=== PATIENT | female | born 1985 | race Hispanic/Latino ===

== ENCOUNTER 2021-07-12 17:18 | Emergency (ER) | payer OTHER ==
[2021-07-12 17:45] LABS: #Eosinphils 0.1 10x3/uL (0.0-0.5); #Monocytes 0.7 10x3/uL (0.0-1.1); #Neutrophils 6.3 10x3/uL (1.5-8.4); %Basophils 0.2 % (0.0-2.0); %Eosinophils 0.6 % (0.0-6.0); %Lymphocytes 11.6 % (18.0-47.0); %Monocytes 8.3 % (0.0-10.0); %Neutrophils 78.3 % (40.0-75.0); Hemoglobin 11.2 g/dL (12.0-15.5); Mean Corpuscular HGB CONC 32.7 g/dL (32.0-36.0); Mean Corpuscular Hemoglobin 29.7 pg (27.0-33.0); Mean Corpuscular Volume 90.7 fl (81.6-98.3); Mean Platelet Volume 9.4 fl (7.4-10.4); Platelet Count 307 10x3/uL (150-450); RBC Distribution Width 13.3 % (11.5-14.5); Red Blood Cell (RBC) Count 3.77 10x6/uL (3.90-5.03); White Blood Cell (WBC) Count 8.1 10x3/uL (3.5-10.5)
[2021-07-12 18:11] LABS: ALT (SGPT) 27 U/L (8-55); AST (SGOT) 41 U/L (5-34); Albumin 3.4 g/dL (3.5-5.0); Alkaline Phosphatase 144 U/L (40-110); Anion Gap 14 mmol/L (10-20); BUN (Urea Nitrogen) 5 mg/dL (7.0-18.7); Bilirubin, Total 0.3 mg/dL (0.2-1.2); Calc. Creatinine Clearance 0 mL/min (70-130); Calcium 9.2 mg/dL (7.8-10.44); Carbon Dioxide 18 mmol/L (22-29); Chloride 106 mmol/L (98-107); Globulin 3.8 g/dL (2.4-3.5); Glucose 122 mg/dL (70-105); Potassium 3.8 mmol/L (3.5-5.1); Protein, Total 7.2 g/dL (6.0-8.3); Sodium 134 mmol/L (136-145)
[2021-07-12] MEDS ORDERED: Acetaminophen 500 MG TAB ONE (18:35)
[2021-07-12 19:10] LABS: Bilirubin Neg (Negative); Blood, Urine Negative (Negative); Clarity Clear (Clear); Glucose, Urine (Dipstick) Normal (Negative); Ketone, Urine Negative (Negative); Leukocyte Negative (Negative); Nitrite Negative (Negative); Protein, Urine (Dipstick) Negative (Neg-Trace); Urobilinogen Normal mg/dL (Less than 2)
[2021-07-12 19:39] LABS: SARS-CoV-2 NAA Rapid Test Not Detected (NotDetected)
== END 2021-07-12 21:29 | disposition home or self-care (01) ==
LOC: CSHERS 17:18
DX: J11.1 Influenza due to unidentified influenza virus with other respiratory manifestations (principal); Z20.822 Contact with and (suspected) exposure to COVID-19
CPT/HCPCS: 0240U; 80053; 81003; 83605; 84484; 85025; 85379; 87040; 93005

== ENCOUNTER 2024-02-16 18:06 | Inpatient (IN) | payer MEDICAID, OTHER ==
[2024-02-16 18:46] VITALS: BMI 29.7
[2024-02-16] MEDS ORDERED: Diphenoxylate HCl/Atropine Tablet PO PRN (20:17)
[2024-02-16] MEDS ORDERED: Tranexamic Acid 1,000 MG/10 ML VIAL IVP PRN (20:17)
[2024-02-16] MEDS ORDERED: Methylergonovine 0.2 MG/ML VIAL IM PRN (20:17)
[2024-02-16] MEDS ORDERED: Ondansetron PF 4 MG/2 ML Vial IVP PRN (20:17)
[2024-02-16] MEDS ORDERED: Lidocaine 1% (PF) 30 ML VIAL SC PRN (20:17)
[2024-02-16] MEDS ORDERED: Promethazine HCl 25 MG/ML VIAL IM PRN (20:17)
[2024-02-16] MEDS ORDERED: hydrALAZINE 20 MG/ML VIAL SLOW IVP PRN (20:17)
[2024-02-16] MEDS ORDERED: Carboprost 250 MCG/ML AMP IM PRN (20:17)
[2024-02-16] MEDS ORDERED: Acetaminophen 500 MG TAB PO PRN (20:17)
[2024-02-16] MEDS ORDERED: Misoprostol 200 MCG TAB PR PRN (20:17)
[2024-02-16 20:29] LABS: Hematocrit 36.3 % (34.9-44.5); Hemoglobin 12.8 g/dL (12.0-15.5); Mean Corpuscular HGB CONC 35.3 g/dL (32.0-36.0); Mean Corpuscular Hemoglobin 30.2 pg (27.0-33.0); Mean Corpuscular Volume 85.6 fL (81.6-98.3); Mean Platelet Volume 10.4 fL (7.4-10.4); Platelet Count 369 10x3/uL (150-450); RBC Distribution Width 13.1 % (11.5-14.5); Red Blood Cell (RBC) Count 4.24 10x6/uL (3.90-5.03); White Blood Cell (WBC) Count 7.7 10x3/uL (3.5-10.5)
[2024-02-16] MEDS ORDERED: Oxytocin 30 units/NS 500 ML 500 ML IV SCH ×3 (20:30)
[2024-02-16 21:09] LABS: Syphilis Antibody Nonreactive (Nonreactive); Syphilis Antibody Index 0.08 S/CO (<1.00 Non-Reactive)
[2024-02-16 21:11] LABS: HBsAg Index 0.17 S/CO (0-0.99); Hep B Surf Ag - L&D Non-Reactive S/CO (NonReactive)
[2024-02-16 22:14] LABS: HIV (1/2) Antibody/Antigen Non-Reactive (NonReactive); HIV 1/2 INDEX 0.15 S/CO (<1.00)
[2024-02-17] MEDS: Misoprostol 100 MCG TAB PO SCH (00:13)
[2024-02-17] MEDS: fentaNYL 50 mcg/mL 1 mL Vial SLOW IVP PRN (03:50)
[2024-02-17] MEDS: HYDROcodone/Acetaminophen 5/325 mg Tablet PO PRN ×2 (06:52→13:03)
[2024-02-17] MEDS: Ibuprofen 800 MG TAB PO PRN (07:35)
[2024-02-17] MEDS ORDERED: hydrALAZINE 20 MG/ML VIAL SLOW IVP PRN (09:05)
[2024-02-17] MEDS ORDERED: Bisacodyl 10 MG SUPP PR PRN (09:05)
[2024-02-17] MEDS ORDERED: Ondansetron PF 4 MG/2 ML Vial IVP PRN (09:05)
[2024-02-17] MEDS ORDERED: Milk Of Magnesia 30 ML UDCUP PO PRN (09:05)
[2024-02-17] MEDS ORDERED: Lanolin Ointment 7 GM TUBE TOP PRN (09:05)
[2024-02-17] MEDS ORDERED: Benzocaine-Menthol 82.5 ML CAN TOP PRN (09:05)
[2024-02-17] MEDS ORDERED: Boostrix 0.5 ML (Tdap) VIAL (>/=7 yrs of age) IM ONE (09:05)
[2024-02-17] MEDS ORDERED: diphenhydrAMINE 25 MG CAP PO PRN (09:05)
[2024-02-17] MEDS ORDERED: Promethazine HCl 25 MG/ML VIAL IM PRN (09:05)
[2024-02-17] MEDS: Ferrous Sulfate 325 MG TAB PO SCH ×2 (09:33→14:09)
[2024-02-17] MEDS: Docusate 100 MG CAP PO SCH (09:33)
[2024-02-17] MEDS: Prenatal Vitamin 1 TAB PO SCH (09:33)
[2024-02-17] MEDS: Ibuprofen 800 MG TAB PO SCH (13:03)
[2024-02-18 08:25] VITALS: BP 114/73; TEMP 98
== END 2024-02-18 13:50 | disposition home or self-care (01) | DRG 807 ==
LOC: CSHLD 18:06 → CSHPP 02-17 08:40
PROVIDERS: ADMIT Family Medicine; ATTEND Family Medicine
PROC: 10E0XZZ Delivery of Products of Conception, External Approach (ICD-10-PCS; principal; 2024-02-17)
DX: O62.3 Precipitate labor (principal); Z37.0 Single live birth; Z3A.39 39 weeks gestation of pregnancy
CPT/HCPCS: 85027; 86780; 86850; 86900; 86901; 87340; 87389; J3010